=== PATIENT | female | born 1940 | race Caucasian/White ===

== ENCOUNTER 2022-12-09 11:46 | Emergency (ER) | payer BC ==
[~2022-12-09] VITALS: Ht 172.7 cm; Wt 60.8 kg
--- NOTE | 2022-12-09 12:10 | NUR ---
Patient AOx4 able to express her concerns. Patient with no signs of distress or discomfort. States pain on left leg is 10/10. Discussed plan of care, patient verbalized agreement. Safety precautions followed.
[2022-12-09] MEDS ORDERED: IBUPROFEN 600 MG TABLET ONE (12:59)
[2022-12-09] MEDS: IBUPROFEN 600 MG TABLET PO ONE (12:59)
[2022-12-09] MEDS ORDERED: NAPR-1192 PO (13:38)
[2022-12-09 14:19] VITALS: BP 118/66
--- NOTE | 2022-12-09 14:19 | NUR ---
Patient discharged to home in stable condition. Written and verbal after care instructions given. Patient verbalizes understanding of instruction.
== END 2022-12-09 14:19 | disposition home or self-care (01) ==
LOC: ER 11:57
DX: M17.12 Unilateral primary osteoarthritis, left knee (principal)
CPT/HCPCS: 73564-TC